=== PATIENT | female | born 1975 | race Caucasian/White ===

== ENCOUNTER 2017-05-22 16:24 | Emergency (ER) | payer OTHER ==
[2017-05-22 17:08] VITALS: BMI 25.8
[2017-05-22 17:13] VITALS: O2SAT 100
[2017-05-22 18:19] LABS: HCG,QUALITATIVE URINE NEGATIVE (NEGATIVE)
[2017-05-22 18:20] LABS: SQUAMOUS EPITHIAL 4 /hpf (0-5); URINE BACTERIA RARE (<OCC); URINE BILIRUBIN NEGATIVE (NEGATIVE); URINE BLOOD NEGATIVE (NEGATIVE); URINE CLARITY Clear (Clear); URINE COLOR Yellow (YELLOW); URINE GLUCOSE (UA) NORMAL (Normal); URINE LEUKOCYTE ESTERASE NEG Leu/uL (Negative); URINE NITRATE NEGATIVE (NEGATIVE); URINE PROTEIN NEGATIVE (NEGATIVE); URINE UROBILINOGEN NORMAL mg/dL (0.2-1.0)
--- NOTE | 2017-05-22 18:49 | C.PDOC ---
History Of Present Illness 41 y/o female () presents to the ED complaining of lower abdominal crampy contraction like pain at 3 pm today. Reports that pain was about 8/10 and then it got better. Pain is intermittent and is worse on palpation. Last normal menstrual period was on 05/14/2017. Denies nausea, vomiting, diarrhea, constipation, burning on urination, dysuria, hematuria, tarry stool or any further medical complaints. Time Seen by Provider: 05/22/17 17:23 Chief Complaint (Nursing): Abdominal Pain History Per: Patient History/Exam Limitations: no limitations Onset/Duration Of Symptoms: Hrs (x 3 hours) Current Symptoms Are (Timing): Better Past Medical History Reviewed: Historical Data, Nursing Documentation, Vital Signs Vital Signs: Last Vital Signs Temp 98.4 F 05/22/17 17:08 Pulse 76 05/22/17 17:08 Resp 17 05/22/17 17:08 BP 124/74 05/22/17 17:08 Pulse Ox 100 05/22/17 21:52 - Medical History PMH: No Chronic Diseases Surgical History: Appendectomy (10 years ago) Family History: States: Unknown Family Hx - Social History Hx Alcohol Use: No Hx Substance Use: No - Immunization History Hx Tetanus Toxoid Vaccination: No Hx Influenza Vaccination: No Hx Pneumococcal Vaccination: No Review Of Systems Except As Marked, All Systems Reviewed And Found Negative. (As per HPI, otherwise negative) Gastrointestinal: Positive for: Abdominal Pain (Lower abdominal pain). Negative for: Nausea, Vomiting Genitourinary: Negative for: Dysuria, Hematuria, Other (burning on urination) Physical Exam - Physical Exam Appears: Well, No Acute Distress Skin: Normal Color, Warm, Dry Head: Atraumatic, Normacephalic Eye(s): bilateral: Normal Inspection, PERRL, EOMI Nose: Normal Throat: Normal Neck: Normal, Supple Cardiovascular: Rhythm Regular, No Murmur Respiratory: Normal Breath Sounds, No Accessory Muscle Use Gastrointestinal/Abdominal: Normal Exam, Bowel Sounds, Tenderness (tenderness in super pubic region) Back: Normal Inspection, No CVA Tenderness Extremity: Normal ROM, No Deformity Neurological/Psych: Oriented x3 ED Course And Treatment - Laboratory Results Result Diagrams: 05/22/17 19:22 05/22/17 19:22 ECG: Interpreted By Me, Viewed By Me ECG Rhythm: Sinus Rhythm (81 bpm), Nonspecific Changes ECG Interpretation: Normal O2 Sat by Pulse Oximetry: 100 (RA) Pulse Ox Interpretation: Normal Medical Decision Making Medical Decision Making: Time: 18:34 Plan: CMP Lipase CBC w/ differential Toradol 30mg IVP ED obtain labs Saline lock 3ml NS Pelvis US Reevalaution Time: 21:46 Clinical Impression: Abdominal Pain Upon provider evaluation patient is medically stable, and requires no further treatment in the ED at this time. Labs, ultrasound, and urine was examined and there was no abnormal findings. Patient was diagnosed with abdominal pain. Counseling was provided and all questions were answered regarding diagnosis and need for follow up with PMD. There is agreement to discharge plan. Return if symptoms persist or worsen. Scribe Attestation: Documented by Jefferson Dasilva and Donovan Roland acting as a scribe for Lenard Garvey MD. Scribe Attestation: All medical record entries made by the Scribe were at my direction and personally dictated by me. I have reviewed the chart and agree that the record accurately reflects my personal performance of the history, physical exam, medical decision making, and the department course for this patient. I have also personally directed, reviewed, and agree with the discharge instructions and disposition. Disposition - Disposition Referrals: [facility] [Outside] Disposition: HOME/ ROUTINE Disposition Time: 21:46 Condition: IMPROVED Additional Instructions: follow up with doctor in 2 days call to make an appointment take medications as prescribed return to hospital if symptoms worsens or progress Prescriptions: Naproxen [Naprosyn] 500 mg PO BID PRN #16 tab PRN Reason: Pain, Moderate (4-7) Instructions: Abdominal Pain (ED) Forms: General Discharge Instructions, [facility] ([place]) - Clinical Impression Clinical Impression: Abdominal pain
[2017-05-22 19:28] LABS: BASO # 0.1 K/uL (0.0-0.2); BASO % 0.6 % (0.0-2.0); EOS # 0.4 K/uL (0.0-0.7); EOS % 3.9 % (0.0-4.0); HEMOGLOBIN 10.5 g/dL (11.0-16.0); LYMPH # 2.3 K/uL (1.0-4.3); MEAN CELL VOLUME 73.9 fL (81.0-99.0); MEAN CORPUSCULAR HEMOGLOBIN 23.8 pg (27.0-31.0); MEAN CORPUSCULAR HGB CONC 32.1 g/dL (33.0-37.0); MEAN PLATELET VOLUME 8.2 fL (7.2-11.7); MONO # 0.6 K/uL (0.0-0.8); MONO % 5.7 % (0.0-10.0); NEUT # 6.6 K/uL (1.8-7.0); NEUT % 66.8 % (50.0-75.0); RBC 4.44 Mil/uL (3.80-5.20); RED CELL DISTRIBUTION WIDTH 15.4 % (11.5-14.5); WHITE BLOOD COUNT 9.8 K/uL (4.8-10.8)
[2017-05-22 19:41] LABS: ALBUMIN 3.9 g/dL (3.5-5.0); ALT/SGPT 28 U/L (9-52); AST/SGOT 34 U/L (14-36); BLOOD UREA NITROGEN 13 mg/dL (7-17); CALCIUM 8.5 mg/dl (8.6-10.4); GFR AFRICAN-AMERICAN > 60; GFR NON-AFRICAN AMERICAN > 60; LIPASE 145 U/L (23-300)
--- NOTE | 2017-05-22 21:13 | US ---
EXAM: US Pelvis Complete, Transabdominal CLINICAL HISTORY: 41 years old, female; Pain; Abdominal pain; Other: Not specified; Additional info: Abd pain TECHNIQUE: Real-time transabdominal pelvic ultrasound (complete) with image documentation. COMPARISON: No relevant prior studies available. FINDINGS: Uterus/cervix: Uterus measures 6.8 x 4.1 x 5.0 cm in size. No myometrial mass. Endometrium: 1.2 cm in thickness. Right ovary: 1.5 x 1.1 x 1.4 cm in size. No mass. Small follicles. Normal flow. Left ovary: 2.7 x 1.1 x 2.3 cm in size. No mass. Small follicles. Normal flow. Free fluid: No significant free fluid. Bladder: Unremarkable as visualized. IMPRESSION: 1.No acute findings. EXAM: US Pelvis, Transvaginal CLINICAL HISTORY: 41 years old, female; Pain; Abdominal pain; Other: Not specified; Additional info: Abd pain TECHNIQUE: Real-time transvaginal pelvic ultrasound (complete) with image documentation. Transvaginal imaging was used for better evaluation of the endometrium and adnexa. COMPARISON: No relevant prior studies available. FINDINGS: Uterus/cervix: Uterus measures 6.8 x 4.1 x 5.0 cm in size. No myometrial mass. Endometrium: 1.2 cm in thickness. Right ovary: 1.5 x 1.1 x 1.4 cm in size. No mass. Small follicles. Normal flow. Left ovary: 2.7 x 1.1 x 2.3 cm in size. No mass. Small follicles. Normal flow. Free fluid: No significant free fluid. Bladder: Empty bladder which cannot be evaluated with this probe. IMPRESSION: 1.No acute findings.
[2017-05-22 21:58] VITALS: BP 113/79; PULSE 71; RESP 20; TEMP 98.6
== END 2017-05-22 21:58 | disposition home or self-care (01) ==
LOC: C.ER 16:24
DX: R10.30 Lower abdominal pain, unspecified (principal)
CPT/HCPCS: 76830; 76856; 80053; 81001; 83690; 84703; 85025; 96374; 99284; J1885